=== PATIENT | male | born 1970 | race Caucasian/White ===

== ENCOUNTER 2017-11-06 12:03 | Emergency (ER) | payer MEDICAID ==
[~2017-11-06] VITALS: Ht 162.6 cm; Wt 73.9 kg
[2017-11-06 12:40] LABS: HEMOGLOBIN 15.4 g/dL (13.7-18.0); WHITE BLOOD COUNT 4.2 x10^3/uL (3.4-10)
[2017-11-06 12:50] LABS: BLOOD UREA NITROGEN 14 mg/dL (7-18)
[2017-11-06] MEDS ORDERED: LISI40TA PO (13:13)
[2017-11-06 13:42] VITALS: BP 108/78
== END 2017-11-06 13:45 | disposition home or self-care (01) ==
LOC: ED 13:30
DX: J20.9 Acute bronchitis, unspecified (principal)
CPT/HCPCS: 36415; 71020; 80048; 82040; 85025; 99285

== ENCOUNTER 2018-05-15 16:54 | Emergency (ER) | payer MEDICAID ==
[~2018-05-15] VITALS: Ht 162.6 cm; Wt 67.0 kg
[~2018-05-15 16:54] MED LIST: LISI40TA PO
[2018-05-15] MEDS ORDERED: MORPHINE SULFATE 4 MG/ML, 1ML IVPush PRN (18:00)
[2018-05-15] MEDS ORDERED: SODIUM CHLORIDE FLUSH 10ML SYR IVF ONE (18:00)
[2018-05-15 18:14] LABS: BASOPHILS # (AUTO) 0.02 x10^3/uL (0-0.1); BASOPHILS % (AUTO) 0 % (0-1); EOSINOPHILS % (AUTO) 1 % (1-7); LYMPHOCYTES # (AUTO) 1.87 x10^3/uL (1-3.4); LYMPHOCYTES % (AUTO) 26 % (22-44); MD NO; MEAN CORPUSCULAR HEMOGLOBIN 29.6 pg (27.5-34.5); MEAN CORPUSCULAR HGB CONC 33.9 g/dL (33.2-36.2); MEAN CORPUSCULAR VOLUME 87.4 fL (81-97); MEAN PLATELET VOLUME 7.5 fL (7.4-10.4); MONOCYTES # (AUTO) 0.92 x10^3/uL (0.2-0.8); MONOCYTES % (AUTO) 13 % (2-9); NEUTROPHILS # (AUTO) 4.38 x10^3/uL (1.8-6.8); NEUTROPHILS % (AUTO) 60 % (42-75); PLATELET COUNT 308 x10^3/uL (130-400); RED BLOOD COUNT 4.63 x10^6/uL (4.38-5.82); RED CELL DISTRIBUTION WIDTH 13.1 % (9.4-14.8)
[2018-05-15] MEDS ORDERED: MORPHINE SULFATE 4 MG/ML, 1ML ONE (18:19)
[2018-05-15 18:26] LABS: ALBUMIN 3.5 g/dL (3.4-5.0); ANION GAP 5 mmol/L (5-15); CALCIUM 8.4 mg/dL (8.5-10.1); CHLORIDE 104 mmol/L (98-107); CREATININE 1.14 mg/dL (0.7-1.3)
[2018-05-15 20:01] LABS: CULTURE INDICATED? YES; MICROSCOPIC INDICATED
[2018-05-15 20:58] VITALS: BP 118/79
== END 2018-05-15 21:00 | disposition home or self-care (01) ==
LOC: ED 17:24
DX: K40.90 Unilateral inguinal hernia, without obstruction or gangrene, not specified as recurrent (principal); L04.1 Acute lymphadenitis of trunk; I10 Essential (primary) hypertension
CPT/HCPCS: 36415; 76857; 80048; 81001; 82040; 85025; 87086; 96374

== ENCOUNTER 2018-09-20 19:43 | Emergency (ER) | payer BC, MEDICAID ==
[2018-09-20 20:25] LABS: MICROSCOPIC INDICATED
[2018-09-20 20:31] LABS: CULTURE INDICATED? YES
[2018-09-20] MEDS ORDERED: HYDROcodone/APAP 5/325 TABLET ONE (21:00)
[2018-09-20] MEDS ORDERED: HYDROcodone/APAP 5/325 TABLET PO ONE (21:00)
[2018-09-20 21:39] VITALS: BP 134/94
[2018-09-20 21:45] LABS: BASOPHILS # (AUTO) 0.02 x10^3/uL (0-0.1); BASOPHILS % (AUTO) 0 % (0-1); EOSINOPHILS # (AUTO) 0.19 x10^3/uL (0-0.4); EOSINOPHILS % (AUTO) 2 % (1-7); LYMPHOCYTES # (AUTO) 2.26 x10^3/uL (1-3.4); LYMPHOCYTES % (AUTO) 28 % (22-44); MD NO; MEAN CORPUSCULAR HEMOGLOBIN 29.5 pg (27.5-34.5); MEAN CORPUSCULAR HGB CONC 33.6 g/dL (33.2-36.2); MEAN CORPUSCULAR VOLUME 87.6 fL (81-97); MEAN PLATELET VOLUME 8.2 fL (7.4-10.4); MONOCYTES # (AUTO) 0.74 x10^3/uL (0.2-0.8); MONOCYTES % (AUTO) 9 % (2-9); NEUTROPHILS # (AUTO) 4.74 x10^3/uL (1.8-6.8); NEUTROPHILS % (AUTO) 60 % (42-75); PLATELET COUNT 304 x10^3/uL (130-400); RED BLOOD COUNT 4.57 x10^6/uL (4.38-5.82)
[2018-09-20 21:53] LABS: ANION GAP 6 mmol/L (5-15); CALCIUM 8.7 mg/dL (8.5-10.1); CHLORIDE 107 mmol/L (98-107); CREATININE 0.99 mg/dL (0.7-1.3)
== END 2018-09-20 22:28 | disposition home or self-care (01) ==
LOC: ED 21:20
DX: B37.42 Candidal balanitis (principal); I10 Essential (primary) hypertension
CPT/HCPCS: 36415; 80048; 81001; 85025; 86592; 87086; 87491; 87591; 99284

== ENCOUNTER 2019-01-11 15:43 | Emergency (ER) | payer BC, MEDICAID, OTHER ==
[~2019-01-11] VITALS: Ht 162.6 cm; Wt 66.4 kg
[2019-01-11 15:55] VITALS: BP 136/85
[2019-01-11] MEDS ORDERED: DIPH,PERTUSS(ACELL),TET VAC/PF 0.5 ML IM-VACC ONE ×2 (17:16→17:30)
[2019-01-11] MEDS ORDERED: LIDOCAINE-MPF 1%, 5ML ONE (17:29)
[2019-01-11] MEDS ORDERED: LIDOCAINE-MPF 1%, 5ML INFIL ONE (18:00)
--- NOTE | 2019-01-11 18:00 | NUR ---
DC EDUCATION PROVIDED, PT DEMONSTRATES UNDERSTANDING. PT AMBULATED STEADILY TO DC WITH RN
== END 2019-01-11 18:05 | disposition home or self-care (01) ==
LOC: ED 16:47
DX: L03.011 Cellulitis of right finger (principal); L02.511 Cutaneous abscess of right hand; I10 Essential (primary) hypertension; F17.200 Nicotine dependence, unspecified, uncomplicated
CPT/HCPCS: 10060; 90471; 90715

== ENCOUNTER 2019-01-17 11:08 | Emergency (ER) | payer MEDICAID ==
[~2019-01-17] VITALS: Ht 165.1 cm; Wt 65.8 kg
[2019-01-17 11:35] VITALS: BP 138/96
--- NOTE | 2019-01-17 12:44 | NUR ---
PT GIVEN DC INSTRUCTIONS, AMB TO DC WITH STEADY GAIT, NADN AT DC.
== END 2019-01-17 12:45 | disposition home or self-care (01) ==
LOC: ED 12:32
DX: L02.511 Cutaneous abscess of right hand (principal); I10 Essential (primary) hypertension; Z88.0 Allergy status to penicillin
CPT/HCPCS: 99281

== ENCOUNTER 2019-11-28 14:48 | Emergency (ER) | payer SELFPAY ==
[~2019-11-28] VITALS: Ht 162.6 cm; Wt 64.7 kg
--- NOTE | 2019-11-28 15:22 | NUR ---
COMMUNITY MUSIC THERAPIST: PT TO ROOM FROM [facility]
--- NOTE | 2019-11-28 15:45 | NUR ---
assumed care of pt. c/o cough/sob x3 days. no hx asthma. insp wheezes throughout. 97% ra. lab at bedside. plan for [facility] tx. st on [place] 100s. vss. a&ox4 gcs 15. pt to cxr. as
[2019-11-28 15:52] LABS: BASOPHILS # (AUTO) 0.04 x10^3/uL (0-0.1); BASOPHILS % (AUTO) 1 % (0-1); EOSINOPHILS # (AUTO) 0.09 x10^3/uL (0-0.4); EOSINOPHILS % (AUTO) 1 % (1-7); LYMPHOCYTES # (AUTO) 1.64 x10^3/uL (1-3.4); LYMPHOCYTES % (AUTO) 20 % (22-44); MD NO; MEAN CORPUSCULAR HEMOGLOBIN 30.2 pg (27.5-34.5); MEAN CORPUSCULAR HGB CONC 33.4 g/dL (33.2-36.2); MEAN CORPUSCULAR VOLUME 90.4 fL (81-97); MONOCYTES % (AUTO) 11 % (2-9); NEUTROPHILS # (AUTO) 5.38 x10^3/uL (1.8-6.8); NEUTROPHILS % (AUTO) 67 % (42-75); PLATELET COUNT 259 x10^3/uL (130-400); RED BLOOD COUNT 5.19 x10^6/uL (4.38-5.82); RED CELL DISTRIBUTION WIDTH 13.2 % (9.4-14.8)
[2019-11-28] MEDS ORDERED: ALBUTEROL/IPRATROPIUM 2.5MG/0.5MG, 3 ML NPPB ONE (16:00)
[2019-11-28 16:01] LABS: ALBUMIN 3.7 g/dL (3.4-5.0); ANION GAP 4 mmol/L (5-15); CALCIUM 9.3 mg/dL (8.5-10.1); CHLORIDE 107 mmol/L (98-107); CREATININE 0.94 mg/dL (0.7-1.3)
[2019-11-28] MEDS ORDERED: ALBUTEROL/IPRATROPIUM 2.5MG/0.5MG, 3 ML ONE (16:02)
[2019-11-28 16:57] VITALS: BP 162/58
== END 2019-11-28 16:59 | disposition home or self-care (01) ==
LOC: ED 16:50
DX: J06.9 Acute upper respiratory infection, unspecified (principal); F17.200 Nicotine dependence, unspecified, uncomplicated; I10 Essential (primary) hypertension
CPT/HCPCS: 36415; 71046; 80048; 82040; 85025; 93005; 94640; 99284; J7620